=== PATIENT | female | born 1945 | race Caucasian/White ===

== ENCOUNTER 2017-02-11 11:09 | Inpatient (IN) | payer OTHER ==
[~2017-02-11] VITALS: Ht 157.5 cm; Wt 65.3 kg
[~2017-02-11 11:09] MED LIST: ACCOLATE20 MG PO; ALPRAZOLAM0.5 MG PO; Actigall PO; Advair HFA 115/21 IH; Ascorbic Acid,Ester- PO; Augmentin PO; BACTRIM,SEPT1 TABLE1 PO; CALCIUM 600+D1 EAC1 PO; COZAAR25 MG PO; DELTASONE20 M1 PO; DILAUDID2 MG PO; Folvite PO; LANSOPRAZOLE30 MG PO; LANTUS 3 M100 UNITS1 SC; LEVAQUIN500 MG PO; LEVEMIR FL100 UNIT/1 SC; LO-DOSE ASPIRIN81 M2 PO; Lasix PO; MAGNESIUM400 MG PO; MYCOPHENOLATE250 MG PO; NOVOLOG MI100 UNIT/4 SC; NOVOLOG PE100 UNITS/ SC; NYSTATIN100000 UN1 PO; Ocean Nasal 0.65% BOTH NARES; Oscal 500 w/Vitamin PO; PREDNISONE10 MG PO; PROGRAF1 MG PO; PROLIA60 MG/1 ML SC; Protonix PO; Reglan PO; SIMETHICONE80 MG PO; SYMBICORT60 INHALA1 IH; TAMIFLU30 MG PO; THERAGRAN1 TABLET PO; URSODIOL300 MG PO; VALGANCICLOVIR450 MG PO; VITAMIN A10000 UNIT PO; ZETIA10 MG PO; ZINC SULFATE220 M1 PO; ZOLOFT50 MG PO; Zestril,Prinivil PO; Zoloft PO; oxyCODONE PO
[2017-02-11 12:21] LABS: HEMATOCRIT 34.5 % (36.0-46.0); MCH 27.9 PG (29.0-34.0); MCHC 32.5 G/DL (30.0-36.0); MEAN PLAT.VOLUME 10.1 uM^3 (9.5-12.4); PLATELET COUNT 357 K/uL (156-360); RBC DIS.WIDTH-CV 13.3 % (11.8-14.6); RBC DIS.WIDTH-SD 42.4 % (39-53); RED BLOOD COUNT 4.01 M/uL (3.80-5.20); WHITE BLOOD COUNT 17.7 K/uL (4.1-10.2)
[2017-02-11 12:36] LABS: CHLORIDE 103 mEq/L (99-109); POTASSIUM 4.9 mEq/L (3.7-5.4); SODIUM 132 mEq/L (136-147)
[2017-02-11 12:38] LABS: GLUCOSE 272 mg/dL (70-99)
[2017-02-11 12:39] LABS: ANION GAP 10 MEQ/L (2-14)
[2017-02-11 12:42] LABS: GFR ESTIMATE (CALCULATED) 36 mL/min/
[2017-02-11 12:43] LABS: UREA NITROGEN (BUN) 39 mg/dL (9-23)
[2017-02-11] MEDS ORDERED: PROAIR HFA8.5 GM IH (13:38)
[2017-02-11] MEDS ORDERED: LEVOTHYROXINE25 MCG PO (13:38)
[2017-02-11] MEDS ORDERED: PROMETHAZINE-P118 M1 PO (13:38)
[2017-02-11] MEDS ORDERED: AZITHROMYCIN250 MG1 PO (13:38)
[2017-02-11] MEDS ORDERED: SERTRALINE HCL50 MG PO (13:38)
[2017-02-11] MEDS ORDERED: CELLCEPT250 MG PO (13:39)
[2017-02-11 14:46] LABS: TROP-I INTERPRETATION NEGATIVE; TROPONIN-I < 0.01 ng/mL (0.0-0.30)
[2017-02-11 15:28] LABS: TOTAL BILIRUBIN 0.4 mg/dL (0.0-1.0)
[2017-02-11 15:29] LABS: ALKALINE PHOSPHATASE 95 IU/L (3-129)
[2017-02-11 15:32] LABS: DIRECT BILIRUBIN 0.2 mg/dL (0.0-0.3)
[2017-02-11] MEDS ORDERED: VITAMIN D32000 UNI1 PO (19:08)
[2017-02-11 22:01] VITALS: BP 159/70
[2017-02-12 02:50] VITALS: BP 118/68
[2017-02-12 06:35] LABS: POINT-OF-CARE METER ID UU14208750
[2017-02-12 06:43] LABS: HEMATOCRIT 34.5 % (36.0-46.0); MCH 27.3 PG (29.0-34.0); MCHC 31.6 G/DL (30.0-36.0); MCV 86.5 FL (83-99); PLATELET COUNT 367 K/uL (156-360); RBC DIS.WIDTH-CV 13.3 % (11.8-14.6); RED BLOOD COUNT 3.99 M/uL (3.80-5.20); WHITE BLOOD COUNT 15.1 K/uL (4.1-10.2)
[2017-02-12 07:05] LABS: ANION GAP 9 MEQ/L (2-14); CHLORIDE 105 MEQ/L (99-109); GFR ESTIMATE (CALCULATED) 47 mL/min/; POTASSIUM 5.2 MEQ/L (3.7-5.4); SAMPLE HEMOLYSIS CHECK 0; SAMPLE ICTERIC CHECK 0; SAMPLE LIPEMIA CHECK 0; SODIUM 138 MEQ/L (136-147); UREA NITROGEN (BUN) 34 mg/dL (9-23)
[2017-02-12 07:09] LABS: GLUCOSE 70 mg/dL (70-99)
[2017-02-12 08:03] VITALS: BP 138/80
[2017-02-12 08:32] LABS: ABS NEUTROPHIL COUNT 13.8; ATYPICAL LYMPHOCYTE 1.7 %; BAND NEUTROPHILS 3.4 % (0-8.0); EOSINOPHIL ABS CT 0; INSTRUMENT ABS NEUTROPHIL CT 12.6 K/uL; LYMPHOCYTES 2.6 % (15.0-45.0); METAMYELOCYTES 1.7 %; OVALOCYTES 1+; PLAT.SUFFICIENCY ADEQUATE; POIKILOCYTOSIS 1+; POLYCHROMASIA 1+; SEG.NEUTROPHILS 88.1 % (46.0-76.0)
[2017-02-12 11:40] VITALS: BP 154/69
[2017-02-12 11:50] LABS: POINT-OF-CARE METER ID UU14208750
[2017-02-12 15:28] LABS: POINT-OF-CARE METER ID UU14314084
[2017-02-12 15:31] LABS: POINT-OF-CARE METER ID UU14314084
[2017-02-12 16:20] VITALS: BP 165/70
[2017-02-12 16:31] LABS: POINT-OF-CARE METER ID UU14208750
[2017-02-12 16:38] LABS: ADD MIUA? NO; BILIRUBIN NEGATIVE; BLOOD NEGATIVE; COLOR YELLOW ((YELLOW)); GLUCOSE (STRIP) >=500; KETONES 5; LEUKOCYTES NEGATIVE; NITRITE NEGATIVE; PROTEIN (STRIP) NEGATIVE; SPECIFIC GRAVITY 1.015 (1.000-1.030); UCUL ADDED? NO; UROBILINOGEN 0.2 MG/DL (0.2-1.0)
[2017-02-12 19:25] VITALS: BP 148/68
[2017-02-12 21:00] VITALS: BP 110/65
[2017-02-12 21:18] LABS: POINT-OF-CARE METER ID UU14162508
[2017-02-13] VITALS: BP 125/75
[2017-02-13 04:00] VITALS: BP 130/65
[2017-02-13 07:27] LABS: HEMATOCRIT 33.5 % (36.0-46.0); MCH 28.2 PG (29.0-34.0); MCHC 32.5 G/DL (30.0-36.0); MCV 86.8 FL (83-99); MEAN PLAT.VOLUME 10.3 uM^3 (9.5-12.4); PLATELET COUNT 272 K/uL (156-360); RBC DIS.WIDTH-CV 13.6 % (11.8-14.6); RBC DIS.WIDTH-SD 42.7 % (39-53); RED BLOOD COUNT 3.86 M/uL (3.80-5.20); WHITE BLOOD COUNT 11.7 K/uL (4.1-10.2)
[2017-02-13 07:50] VITALS: BP 177/72
[2017-02-13 08:16] LABS: ABS NEUTROPHIL COUNT 10.9; ANISOCYTOSIS 1+; BAND NEUTROPHILS 3.5 % (0-8.0); EOSINOPHIL ABS CT 0; INSTRUMENT ABS NEUTROPHIL CT 9.7 K/uL; LYMPHOCYTES 5.2 % (15.0-45.0); OVALOCYTES 1+; PLAT.SUFFICIENCY ADEQUATE; POIKILOCYTOSIS 1+; POLYCHROMASIA 1+; SEG.NEUTROPHILS 89.6 % (46.0-76.0)
[2017-02-13 08:20] LABS: POINT-OF-CARE METER ID UU14162508
[2017-02-13 08:33] LABS: INTERNAL CONTROL VALID? YES
[2017-02-13 08:56] LABS: ANION GAP 7 MEQ/L (2-14); CHLORIDE 103 MEQ/L (99-109); GFR ESTIMATE (CALCULATED) 52 mL/min/; POTASSIUM 5.6 MEQ/L (3.7-5.4); SAMPLE HEMOLYSIS CHECK 0; SAMPLE ICTERIC CHECK 0; SAMPLE LIPEMIA CHECK 0; UREA NITROGEN (BUN) 29 mg/dL (9-23)
[2017-02-13 08:57] LABS: GLUCOSE 307 mg/dL (70-99); SODIUM 131 MEQ/L (136-147)
[2017-02-13 11:32] LABS: C DIFF TOXIN NEGATIVE (NEGATIVE); PROBE CHECK PASS; SPECIMEN PROCESSING CONTROL PASS
[2017-02-13 11:35] VITALS: BP 123/69; BP 99/60
[2017-02-13 12:09] LABS: POINT-OF-CARE METER ID UU14162508
[2017-02-13 12:34] LABS: ANION GAP 11 MEQ/L (2-14); CHLORIDE 103 MEQ/L (99-109); GFR ESTIMATE (CALCULATED) 43 mL/min/; GLUCOSE 245 mg/dL (70-99); POTASSIUM 5.4 MEQ/L (3.7-5.4); SAMPLE HEMOLYSIS CHECK 0; SAMPLE ICTERIC CHECK 0; SAMPLE LIPEMIA CHECK 0; SODIUM 135 MEQ/L (136-147); UREA NITROGEN (BUN) 30 mg/dL (9-23)
[2017-02-13] MEDS ORDERED: LEVOFLOXACIN750 MG PO (15:08)
[2017-02-13] MEDS ORDERED: LEVEMIR FL100 UNIT/1 SC (15:09)
[2017-02-13 15:11] VITALS: BP 136/66
[2017-02-13] MEDS ORDERED: NORVASC5 MG PO (15:12)
== END 2017-02-13 15:59 | disposition home health service (06) | DRG 191 ==
LOC: EME 11:09 → 2EAST 19:30 → EDOF 19:30 → ENRESERV 19:41 → 2EAST 21:34
PROVIDERS: Hospitalist; Internal Medicine; Internal Medicine Pulmonary Disease
DX: J44.1 Chronic obstructive pulmonary disease with (acute) exacerbation (principal); J44.0 Chronic obstructive pulmonary disease with (acute) lower respiratory infection; J20.8 Acute bronchitis due to other specified organisms; N17.9 Acute kidney failure, unspecified; E87.1 Hypo-osmolality and hyponatremia; J98.11 Atelectasis; I10 Essential (primary) hypertension; E78.00 Pure hypercholesterolemia, unspecified; E11.65 Type 2 diabetes mellitus with hyperglycemia; K21.9 Gastro-esophageal reflux disease without esophagitis; F39 Unspecified mood [affective] disorder; E03.9 Hypothyroidism, unspecified; Z94.4 Liver transplant status; Z79.899 Other long term (current) drug therapy; Z85.05 Personal history of malignant neoplasm of liver; Z87.891 Personal history of nicotine dependence; Z23 Encounter for immunization
CPT/HCPCS: 71020; 80048; 80048 91; 80076; 81003; 82948; 83880 GA; 84484; 85025; 85027; 87040; 87070; 87205; 87449; 87493; 90686; 93005; 94640; 94640 76; 99202; 99281; 99285; J0692; J1650; J1815; J1956; J2920; J7030; J7050; J7507; J7512; J7517